=== PATIENT | female | born 1980 | race Hispanic/Latino ===

== ENCOUNTER 2022-10-25 11:30 | Emergency (ER) | payer SELFPAY ==
[2022-10-25] MEDS ORDERED: NA CHLORIDE 0.9% 1,000 ML ONE (12:21)
[2022-10-25 12:22] LABS: Absolute Lymphocytes (CBC) 1.8 K/uL (0.7-4.9); Hematocrit 39.7 % (36.0-45.0); MCV 82.2 fL (80-100); MPV 7.3 fL (7.6-11.3); Platelets 371 thou/uL (152-406); RBC Red Blood Cell Count 4.83 M/uL (3.86-4.86)
[2022-10-25 12:25] LABS: Specific Gravity 1.009 (1.005-1.030)
[2022-10-25 12:26] LABS: Specific Gravity 1.009 (1.005-1.030); Urine Bacteria None Seen /HPF (<20); Urine Bilirubin NEGATIVE (Negative); Urine Blood Negative (Negative); Urine Clarity Extremely Turbid (Clear); Urine Color Light-Yellow (Yellow); Urine Glucose NEGATIVE (Negative); Urine Mucus Slight /HPF (None Seen); Urine Protein NEGATIVE (Negative); Urine RBC <5 /HPF (None Seen); Urine Urobilinogen Normal (Normal)
[2022-10-25 12:28] LABS: Protime INR 0.94
[2022-10-25 12:32] LABS: Barbiturates NEGATIVE (NEGATIVE); Benzodiazepines NEGATIVE (NEGATIVE); Cocaine NEGATIVE (NEGATIVE); METHAMPHETAM NEGATIVE (NEGATIVE); Methadone NEGATIVE (NEGATIVE); Opiates NEGATIVE (NEGATIVE); Phencyclidine NEGATIVE (NEGATIVE); THC Cannibis NEGATIVE (NEGATIVE)
[2022-10-25] MEDS ORDERED: ACETAMINOPHEN 500 MG TAB ONE (12:41)
[2022-10-25] MEDS ORDERED: LORazepam 2 MG/ML VIAL ONE (12:41)
--- NOTE | 2022-10-25 12:50 | EDPHYS ---
Physician Documentation [facility] Name: Maite Tao Age: 42 yrs Sex: Female : 1980 Arrival Date: 10/25/2022 Time: 11:30 Bed 17 Private MD: ED Physician Edsion Reaves HPI: 10/25 12:45 This 42 yrs old Female presents to ER via EMS with complaints of Anxiety. nate 12:45 The patient presents to the emergency department with anxiety, over money, over work. nate Onset: The symptoms/episode began/occurred 1 day(s) ago. Past psychiatric history: Prior diagnosis: bipolar disorder, schizophrenia. Associated signs and symptoms: The patient has no apparent associated signs or symptoms. The patient has experienced similar episodes in the past, multiple times. Historical: - Allergies: 11:35 No Known Allergies; db - PMHx: 11:35 Schizophrenia; Bipolar disorder; db - Immunization history:: Adult Immunizations unknown, Client reports receiving the 1st dose of the Covid vaccine. - Social history:: Smoking status: Patient denies any tobacco usage or history of. ROS: 12:46 Constitutional: Negative for fever, chills, and weight loss, Eyes: Negative for injury, nate pain, redness, and discharge, ENT: Negative for injury, pain, and discharge, Neck: Negative for injury, pain, and swelling, Cardiovascular: Negative for chest pain, palpitations, and edema, Respiratory: Negative for shortness of breath, cough, wheezing, and pleuritic chest pain, Abdomen/GI: Negative for abdominal pain, nausea, vomiting, diarrhea, and constipation, Back: Negative for injury and pain, : Negative for injury, bleeding, discharge, and swelling, MS/Extremity: Negative for injury and deformity, Skin: Negative for injury, rash, and discoloration, Neuro: Negative for headache, weakness, numbness, tingling, and seizure, Allergy/Immunology: Negative for hives, rash, and allergies, Endocrine: Negative for neck swelling, polydipsia, polyuria, polyphagia, and marked weight changes, Hematologic/Lymphatic: Negative for swollen nodes, abnormal bleeding, and unusual bruising. 12:46 Psych: Positive for anxiety. Exam: 12:46 Constitutional: This is a well developed, well nourished patient who is awake, alert, nate and in no acute distress. Head/Face: Normocephalic, atraumatic. Eyes: Pupils equal round and reactive to light, extra-ocular motions intact. Lids and lashes normal. Conjunctiva and sclera are non-icteric and not injected. Cornea within normal limits. Periorbital areas with no swelling, redness, or edema. ENT: Nares patent. No nasal discharge, no septal abnormalities noted. Tympanic membranes are normal and external auditory canals are clear. Oropharynx with no redness, swelling, or masses, exudates, or evidence of obstruction, uvula midline. Mucous membranes moist. Neck: Trachea midline, no thyromegaly or masses palpated, and no cervical lymphadenopathy. Supple, full range of motion without nuchal rigidity, or vertebral point tenderness. No Meningismus. Chest/axilla: Normal chest wall appearance and motion. Nontender with no deformity. No lesions are appreciated. Cardiovascular: Regular rate and rhythm with a normal S1 and S2. No gallops, murmurs, or rubs. Normal PMI, no JVD. No pulse deficits. Respiratory: Lungs have equal breath sounds bilaterally, clear to auscultation and percussion. No rales, rhonchi or wheezes noted. No increased work of breathing, no retractions or nasal flaring. Abdomen/GI: Soft, non-tender, with normal bowel sounds. No distension or tympany. No guarding or rebound. No evidence of tenderness throughout. Back: No spinal tenderness. No costovertebral tenderness. Full range of motion. Skin: Warm, dry with normal turgor. Normal color with no rashes, no lesions, and no evidence of cellulitis. MS/ Extremity: Pulses equal, no cyanosis. Neurovascular intact. Full, normal range of motion. Neuro: Awake and alert, GCS 15, oriented to person, place, time, and situation. Cranial nerves II-XII grossly intact. Motor strength 5/5 in all extremities. Sensory grossly intact. Cerebellar exam normal. Normal gait. Psych: Awake, alert, with orientation to person, place and time. Behavior, mood, and affect are within normal limits. Vital Signs: 11:32 BP 124 / 88; Pulse 87; Resp 16; Temp 98.2(O); Pulse Ox 99% on R/A; Weight 65.77 kg; db Height 5 ft. 1 in. ; 11:32 Body Mass Index 27.40 (65.77 kg, 154.94 cm) db MDM: 11:33 Patient medically screened. [facility] 12:46 Differential diagnosis: drug withdrawal. acute psychotic break, depression, psychosis nate secondary to non-compliance. Data reviewed: vital signs, nurses notes, lab test result(s), CBC, drug level(s), electrolytes, hepatic panel, urinalysis. Consideration of Admission/Observation Escalation of care including admission/observation considered. I considered the following discharge prescriptions or medication management in the emergency department Medications were administered in the Emergency Department. See MAR. Test considered but Not performed: X-ray: no cxr. Historians other than the Patient: EMS: ems, well informed. non. Care significantly affected by the following chronic conditions: schizo, bipolar. 10/25 11:33 Order name: Acetaminophen [facility] 10/25 11:33 Order name: Basic Metabolic Panel [facility] 10/25 11:33 Order name: CBC with Diff; Complete Time: 12:44 [facility] 10/25 11:33 Order name: ETOH Level [facility] 10/25 11:33 Order name: Hepatic Function [facility] 10/25 11:33 Order name: PT-INR; Complete Time: 12:44 [facility] 10/25 11:33 Order name: Test, Urine; Complete Time: 12:44 [facility] 10/25 11:33 Order name: Ptt, Activated; Complete Time: 12:44 [facility] 10/25 11:33 Order name: Salicylate [facility] 10/25 11:33 Order name: Urinalysis w/ reflexes; Complete Time: 12:44 [facility] 10/25 11:33 Order name: Urine Drug Screen; Complete Time: 12:44 [facility] 10/25 11:33 Order name: EKG; Complete Time: 11:34 [facility] 10/25 11:33 Order name: EKG - Nurse/Tech; Complete Time: 12:12 [facility] 10/25 11:33 Order name: IV Saline Lock; Complete Time: 12:12 [facility] 10/25 11:33 Order name: Labs collected and sent; Complete Time: 12:12 [facility] 10/25 11:33 Order name: Suicide Screening ([place]); Complete Time: 12:36 [facility] Administered Medications: 12:35 Drug: NS 0.9% IV 1000 ml Route: IV; Rate: 1 bolus; Site: right antecubital; nj1 12:35 Drug: Acetaminophen PO 1000 mg Route: PO; nj1 13:03 Follow up: Response: No adverse reaction nj1 12:35 Drug: Ativan IVP 1 mg Route: IVP; Site: right antecubital; nj1 13:02 Follow up: Response: No adverse reaction nj1 13:02 Drug: hydrOXYzine PO 50 mg Route: PO; nj1 Disposition Summary: 10/25/22 12:50 Discharge Ordered Location: Home nate Problem: new nate Symptoms: have improved nate Condition: Stable nate Diagnosis - Bipolar disorder, unspecified nate - Anxiety disorder, unspecified nate Followup: nate - With: Private Physician - When: 2 - 3 days - Reason: Recheck today's complaints, Continuance of care, Re-evaluation by your physician Followup: nate - With: Gomez Francis MD - When: 2 - 3 days - Reason: Recheck today's complaints, Re-evaluation by your physician Discharge Instructions: - Discharge Summary Sheet nate - Managing Bipolar Disorder nate - Mixed Bipolar Disorder nate - Supporting Someone With Bipolar Disorder nate - Supporting Someone With Anxiety nate - Managing Anxiety, Adult nate Forms: - Medication Reconciliation Form [facility] - Thank You Letter [facility] - Antibiotic Education nate - Prescription Opioid Use nate - Patient Portal Instructions [facility] - Leadership Thank You Letter [facility] Prescriptions: - Hydroxyzine HCl 25 mg Oral Tablet - take 1 tablet by ORAL route every 6 hours As needed; 30 tablet; Refills: 0, nate Product Selection Permitted Signatures: Dispatcher [employer] Edison Stephens MD MD cha Benton, Danielle RN RN db Melanie Mccabe RN RN nj1
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
[2022-10-25] MEDS ORDERED: hydrOXYzine HCL 25 MG TAB ONE (13:07)
[2022-10-25 13:13] LABS: ALT/SGPT 204 U/L (13-56); AST/SGOT 165 U/L (15-37); Alkaline Phosphatase 683 U/L (45-117); BUN Blood Urea Nitrogen 9 mg/dL (7-18); Bicarbonate 30 mEq/L (21-32); Bilirubin Direct 0.3 mg/dL (0-0.2); Bilirubin Indirect, Calculated 0.1 mg/dL (0.2-0.8); Bilirubin Total 0.4 mg/dL (0.2-1.0); Glomerular Filtration Rate 95 ml/min (=/>90); Glucose Level 95 mg/dL (74-106); Protein, Total 8.7 g/dL (6.4-8.2); Sodium Level 137 mEq/L (136-145)
[2022-10-25 13:22] VITALS: BP 124/88; TEMP 98.2; O2SAT 99
--- NOTE | 2022-10-26 17:05 | EKG ---
Test Date: 2022-10-25 Test Time: 12:21:04 Heel Former: EDILBERTO MEASUREMENT RESULTS: Intervals: Rate: 79 IL: 126 QRSD: 82 QT: 364 QTc: 417 [place]: P: -12 IL: 126 QRS: 41 T: 26 INTERPRETIVE STATEMENTS: Normal sinus rhythm Normal ECG No previous ECG available for comparison Electronically Signed On 10-26-22 17:02:59 CDT by Vance Gee
== END 2022-10-25 13:09 | disposition home or self-care (01) ==
LOC: EDBD 11:30 → ER 11:30
DX: F31.9 Bipolar disorder, unspecified (principal); F41.9 Anxiety disorder, unspecified
CPT/HCPCS: 36415; 80048; 80076; 80143; 80179; 80307; 81001; 81025; 82077; 85025; 85610; 85730; 93005; 96374; 99284; J7030

== ENCOUNTER 2023-07-26 13:42 | Emergency (ER) | payer SELFPAY ==
--- OUTSIDE RECORDS SUMMARY | 2023-07-26 13:44 | XMS REPORT | Continuity of Care Document ---
Author Name Unknown Address [address] [facility] [place] [address] [facility] thconnect Address [address] [facility] [place] [address] Care Team Providers Care Dog Beautician Name Role Phone NONE, NONE Primary Care Physician Unavailab DR ALEX Barnard Attending Clinician Unavailable DR ALEX BALLARD Attending Clinician Unavailable Caleb Putnam Attending Clinician Unavailable Doctor Unassigned, [place] Attending Clinician U Ray Rosario MD Attending Clinician +0 Giorgio Can CRNA Attending Clinician + [phone] Gelacio Mackey CRNA Attending Clinician [phone] Modesta Goyal PA-C Attending Clinician [phone] Ella Cline MD Attending Clinician [phone] , [facility] Room Attending Clinician Unavailortiz Robb MD, Saba Lackey Attending Clinician [phone] Emmy PENDLETON, Sravanthi Lisa Attending Clinician [phone] Ariana Martinez MD Attending Clinician [phone] DR ALEX BALLARD Admitting Clinician Unavailable Ray Cummins MD Admitting Clinician + Payers Payer Name Policy Type Policy Number Effective Date Expirati on Date Source 1000 [id number] 2023 00:00:00 0700 [id number] 1958 00:00:00 Problems Condition Name Condition Details Condition Category Status Onset Date Resolution Date Last Treatment Date Treating Clinician Comments Source Encounter for female sterilizat ion procedure Encounter for female sterilizat ion procedure Disease Active 2-07 00:00: 00 Overview: 04/20/2019 - s/p laparosco pic bilateral salpingec riccardo. [facility] Consultati on for female sterilizat ion Consultati on for female sterilizat ion Disease Active 1-13 00:00: 00 Overview: Added automatic ally from request for surgery [id number] [facility] History of section History of section Disease Active - 00:00: 00 [facility] History of left salpingo-o ophorectom y History of left salpingo-o ophorectom y Disease Active 03-24 00:00: 00 [facility] section wound seroma, section wound seroma, Disease Active - 00:00: 00 [facility] Low-lying placenta Low-lying placenta Disease Active 11-02 00:00: 00 Overview: 11/02/18 - Anatomy scan and echo were normal. CL was 49 mm and the placental edge was 0.9 cm from the cervical os. [facility] Previous delivery affecting , antepartum Previous delivery affecting , antepartum Disease Active 07-14 00:00: 00 [facility] History of ectopic History of ectopic Disease Active 07-14 00:00: 00 [facility] Obesity Obesity Disease Active 09-03 00:00: 00 Overview: ICD10 Diagnosis Term [employer] [facility] Allergies, Adverse Reactions, Alerts Allergy Name Allergy Type Status Severity Reaction(s) Onset Date Inactive Date Treating Clinician Comments Source No Known Drug Allergie s DA Active U 8 00:00: 00 [facility] No Known Drug Allergie s DA Active [facility] Social History Social Habit Start Date Stop Date Quantity Comments Source ASSERTION 2018-06-21 00:00:00 [facility] History SDOH Alcohol Binge [facility] Alcohol Comment [facility] At [facility] Alcohol intake 2019-04-23 00:00:00 2019-04-23 00:00:00 [facility] History SDOH Alcohol Std Drinks 2019-04-17 00:00:00 2019-04-17 00:00:00 2 [facility] History SDOH Alcohol Frequency 2019-04-17 00:00:00 2019-04-17 00:00:00 3 [facility] Smoking Status Start Date Stop Date Source Never smoker [facility] Medications Ordered Medication Name Filled Medication Name Start Date Stop Date Current Medication? Ordering Clinician Indication Dosage Frequency Signature (SIG) Comments Components Source ondansetron (ZOFRAN (PF)) injection 4 mg 04-20 15:32: 05 Yes 4mg 4 mg, Slow IV Push, PRN, Starting Tue04/20/19 at 0932, Until Discontinu ed, Routine, Nausea and Vomiting (N/V) [facility] HYDROcodone -acetaminop hen (NORCO 5) 5-325 mg tablet 2 tablet 04-20 15:31: 42 Yes 2{tbl} 2 tablet, Oral, Q6HPRN, Starting Tue04/20/19 at 0931, Until Discontinu ed, Routine, Pain (scale 7-10) [facility] proMETHazin e (PHENERGAN) 12.5 mg in NaCl 0.9% (NS) 50 mL piggyback 04-20 15:23: 28 Yes 12.5mg 12.5 mg, Intravenou s, [id number], 2 doses, Starting Tue04/20/19 at 0923, Until Discontinu ed, 50 mL, PACU [facility] HYDROmorpho ne (DILAUDID) injection 0.25 mg 04-20 15:23: 28 Yes .25mg 0.25 mg, Slow IV Push, [id number], 8 doses, Starting Tue04/20/19 at 0923, Until Discontinu ed, Routine, Pain (scale 7-10), up to 2mg, PACU
Us e approved by (Faculty): ADC PROVIDER [facility] FENTanyl PF (SUBLIMAZE (PF)) injection 50 mcg 04-20 15:23: 28 Yes 50ug 50 mcg, Slow IV Push, Q5MIN PRN, 4 doses, Starting Tue04/20/19 at 0923, Until Discontinu ed, Routine, Pain (scale 4-6), PACU [facility] sugammadex (BRIDION) injection 04-20 15:03: 00 04-20 15:29 :59 No Intravenou s, ONCE INTRA PROCEDURE, Starting Tue04/20/19 at 0903, Until Discontinu ed, Routine, Intra-op [facility] sodium chloride 0.9 % irrigation solution 04-20 15:00: 00 Yes PRN, Starting Tue04/20/19 at 0900, Until Discontinu ed, Intra-op [facility] ketorolac (TORADOL) injection 04-20 14:58: 00 04-20 15:29 :59 No ONCE INTRA PROCEDURE, Starting Tue04/20/19 at 0858, Until Discontinu ed, Routine, Intra-op [facility] bupivacaine -epinephrin e-pf (SENSORCAIN E W/EPINEPHRI NE) 0.25 %-1:200,000 injection 04-20 14:32: 00 Yes PRN, Starting Tue04/20/19 at 0832, Until Discontinu ed, Routine, Intra-op [facility] ceFAZolin (ANCEF) injection 04-20 14:31: 00 04-20 15:29 :59 No ONCE INTRA PROCEDURE, Starting Tue04/20/19 at 0831, Until Discontinu ed, RUSSEL, Intra-op [facility] ondansetron (ZOFRAN (PF)) injection 04-20 14:14: 00 04-20 15:29 :59 No ONCE INTRA PROCEDURE, Starting Tue04/20/19 at 0814, Until Discontinu ed, Routine, Intra-op [facility] acetaminoph en ADULT (OFIRMEV) injection 04-20 14:14: 00 04-20 15:29 :59 No IV Infusion, Administer over 15 Minutes, ONCE INTRA PROCEDURE, Starting Tue04/20/19 at 0814, Until Discontinu ed, Routine, Intra-op [facility] dexamethaso ne (DECADRON PHOSPHATE) injection 04-20 14:14: 00 04-20 15:29 :59 No Intravenou s, ONCE INTRA PROCEDURE, Starting Tue04/20/19 at 0814, Until Discontinu ed, Routine, Intra-op [facility] ketamine (KETALAR) injection 04-20 14:05: 00 04-24 12:07 :55 No ONCE INTRA PROCEDURE, Starting Tue04/20/19 at 0805, Until Tu04/24/19 at 0607, Routine, Intra-op [facility] propofol IV infusion 04-20 14:05: 00 04-20 15:29 :59 No Intravenou s, ONCE INTRA PROCEDURE, Starting Tue04/20/19 at 0805, Until Discontinu ed, Routine, Intra-op [facility] lidocaine 1% (XYLOCAINE) 100 mg/10 mL (1 %) injection 04-20 14:01: 00 04-20 15:29 :59 No ONCE INTRA PROCEDURE, Starting Tue04/20/19 at 0801, Until Discontinu ed, Routine, Intra-op [facility] FENTanyl PF (SUBLIMAZE (PF)) injection 04-20 13:57: 00 04-20 15:29 :59 No ONCE INTRA PROCEDURE, Starting Tue04/20/19 at 0757, Until Discontinu ed, Routine, Intra-op [facility] midazolam (VERSED) injection 04-20 13:57: 00 04-20 15:29 :59 No ONCE INTRA PROCEDURE, Starting Tue04/20/19 at 0757, Until Discontinu ed, Routine, Intra-op [facility] lactated ringers IV infusion 1,000 mL 04-20 13:30: 00 04-20 13:25 :00 No 1000mL at 20 mL/hr, 1,000 mL, IV Infusion, ONCE, 1 dose, Tue04/20/19 at 0730, Routine, DSU Pre-op [facility] lactated ringers IV infusion 04-20 13:11: 00 04-20 15:29 :59 No IV Infusion, CONTINUOUS PRN, Starting Tue04/20/19 at 0711, Until Discontinu ed, Routine, Intra-op [facility] HYDROcodone -acetaminop hen 5-325 mg tablet 04-20 00:00: 00 Yes [id number] 1{tbl} Take 1 tablet by mouth every 6 (six) hours as needed (severe pain). [facility] ibuprofen 600 mg tablet 04-20 00:00: 00 Yes [id number] 600mg Take 1 tablet by mouth every 6 (six) hours as needed (pain). [facility] ibuprofen 600 mg tablet 03-24 00:00: 04-20 00:00 :00 No [id number] 600mg Take 1 tablet by mouth every 6 (six) hours as needed (pain). [facility] HYDROcodone -acetaminop hen 5-325 mg tablet 03-24 00:00: 00 04-20 00:00 :00 No [id number] 1{tbl} Take 1 tablet by mouth every 6 (six) hours as needed (severe pain). [facility] ibuprofen 600 mg tablet 2018-03 00:00: 04-20 00:00 :00 No [id number] 600mg Take 1 tablet by mouth every 6 (six) hours as needed (pain). [facility] metroNIDAZO LE 500 mg tablet 09-19 00:00: 00 10-19 00:00 :00 No 1{tbl} Take 1 tablet by mouth 2 (two) times daily. [facility] no.44-iron, car-FA-dha (PRENATE MINI) 29 mg iron-1 mg -350 mg Cap - 00:00: 00 Yes [id number] 1{tbl} Take 1 tablet by mouth daily. [facility] progesteron e (PROMETRIUM ) 200 mg capsule 07-14 00:00: 00 10-19 00:00 :00 No [id number] 200 mg intravagin ally every night [facility] Vital Signs Vital Name Observation Time Observation Value Comments S ource Height 2023-04-06 18:53:00 154.94 CM Weight 2023-04-06 18:53:00 63.6 KG Height 2023-04-06 18:53:00 154.94 CM Weight 2023-04-06 18:53:00 63.6 KG Systolic blood pressure 2019-04-20 16:09:00 140 mm[Hg] [facility] Diastolic blood pressure 2019-04-20 16:09:00 89 mm[Hg] [facility] Heart rate 2019-04-20 16:09:00 90 /min [facility] Respiratory rate 2019-04-20 16:09:00 16 /min [facility] Oxygen saturation in Arterial blood by Pulse oximetry 2019-04-20 16:09:00 99 /min [facility] Body temperature 2019-04-20 16:00:00 36.22 Janell [facility] Body height 2019-04-19 18:48:00 157.5 cm [facility] Body weight 2019-04-19 18:48:00 83.462 kg [facility] BMI 2019-04-19 18:48:00 33.65 kg/m2 [facility] Systolic blood pressure 2019-04-20 16:09:00 140 mm[Hg] [facility] Diastolic blood pressure 2019-04-20 16:09:00 89 mm[Hg] [facility] Heart rate 2019-04-20 16:09:00 90 /min [facility] Respiratory rate 2019-04-20 16:09:00 16 /min [facility] Oxygen saturation in Arterial blood by Pulse oximetry 2019-04-20 16:09:00 99 /min [facility] Body temperature 2019-04-20 16:00:00 36.22 Janell [facility] Body height 2019-04-19 18:48:00 157.5 cm [facility] Body weight 2019-04-19 18:48:00 83.462 kg [facility] BMI 2019-04-19 18:48:00 33.65 kg/m2 [facility] Systolic blood pressure 2018-11-16 16:05:00 124 mm[Hg] University [facility] Diastolic blood pressure 2018-11-16 16:05:00 80 mm[Hg] [facility] Heart rate 2018-11-16 16:05:00 91 /min [facility] Body temperature 2018-11-16 16:05:00 36.67 Janell [facility] Respiratory rate 2018-11-16 16:05:00 18 /min [facility] Body height 2018-11-16 16:05:00 157.5 cm [facility] Body weight 2018-11-16 16:05:00 87.091 kg [facility] BMI 2018-11-16 16:05:00 35.12 kg/m2 [facility] Systolic blood pressure 2018-11-16 16:05:00 124 mm[Hg] [facility] Diastolic blood pressure 2018-11-16 16:05:00 80 mm[Hg] [facility] Heart rate 2018-11-16 16:05:00 91 /min [facility] Body temperature 2018-11-16 16:05:00 36.67 Janell [facility] Respiratory rate 2018-11-16 16:05:00 18 /min [facility] Body height 2018-11-16 16:05:00 157.5 cm [facility] Body weight 2018-11-16 16:05:00 87.091 kg [facility] BMI 2018-11-16 16:05:00 35.12 kg/m2 [facility] Systolic blood pressure 2018-10-19 14:53:00 129 mm[Hg] [facility] Diastolic blood pressure 2018-10-19 14:53:00 78 mm[Hg] [facility] Heart rate 2018-10-19 14:53:00 81 /min [facility] Body temperature 2018-10-19 14:53:00 36.83 Janell [facility] Respiratory rate 2018-10-19 14:53:00 18 /min [facility] Body height 2018-10-19 14:53:00 157.5 cm [facility] Body weight 2018-10-19 14:53:00 86.183 kg [facility] BMI 2018-10-19 14:53:00 34.75 kg/m2 [facility] Procedures Procedure Date / Time Performed Performing Clinician Source STERILIZATION CONSENT FORM 2019-05-10 06:01:00 Doctor Unassigned, [place] [facility] INTUBATION 2019-04-20 14:38:32 Gelacio Mackey [facility] LAPAROSCOPIC SALPINGECTOMY 2019-04-20 13:48:00 Ray Cummins [facility] POCT TEST 2019-04-20 13:45:00 Gelacio Mackey [facility] DAY SURGERY - ADC 2019-04-20 06:01:00 Doctor Annel ssigned, [place] [facility] STERILIZATION CONSENT FORM 2018-11-16 05:01:00 Doctor Unassigned, [place] [facility] SECOND AND THIRD TRIMESTER ULTRASOUND 2018-11-02 19:18:00 Ray Cummins [facility] SECOND AND THIRD TRIMESTER ULTRASOUND 2018-11-02 19:16:00 Ray Cummins [facility] POCT URINALYSIS W/O SPECIFIC GRAVITY 2018-10-19 14:52:00 Ray Cummins [facility] Encounters Start Date/Time End Date/Time Encounter Type Admission Type Attending Clinicians Care Facility Care Department Encounter ID Source 2022-04-01 10:02:05 Inpatient TEXANA TEXANA [id number] [facility] 2021-12-08 10:02:15 Inpatient TEXANA TEXANA [id number] [facility] 2021-12-04 12:03:37 Inpatient TEXANA TEXANA [id number] [facility] 2021-11-19 16:40:12 Inpatient TEXANA TEXANA [id number] [facility] 2021-11-18 09:29:28 Inpatient TEXANA TEXANA [id number] [facility] 2023-04-06 18:53:00 2023-04-06 22:38:00 Outpatient E ALEX BALLARD [facility] [id number] [facility] 2023-04-06 18:53:00 2023-04-06 22:38:00 Outpatient E ALEX BALLARD [facility] [id number] [facility] 2021-10-29 14:21:00 2021-10-29 14:21:00 Emergency [facility] [id number] 42 [facility] 2021-10-29 14:21:00 2021-10-29 14:21:00 Emergency Emergency Caleb Putnam [facility] [id number] 42 [facility] 2019-05-10 00:00:00 2019-05-10 00:00:00 Orders Only Doctor Unassigned, [place] [id number] 350.1.13.10 4.2.7.2.686 [id number] [id number] [facility] 2019-05-10 00:00:00 2019-05-10 00:00:00 Orders Only Doctor Unassigned, [place] [id number] 350.1.13.10 4.2.7.2.686 [id number] [id number] 2019-04-21 00:00:00 2019-04-21 00:00:00 Patient Secure Msg Doctor Unassigned, [place] [id number] 350.1.13.10 4.2.7.2.686 [id number] [facility] 2019-04-21 00:00:00 2019-04-21 00:00:00 Patient Secure Msg Doctor Unassigned, [place] [id number] 350.1.13.10 4.2.7.2.686 [id number] 134 [id number] 2019-04-20 07:18:00 2019-04-20 10:56:00 Hospital Encounter Ray Cummins [facility] 1.2.840.114 350.1.13.10 4.2.7.2.686 [id number] [facility] 2019-04-20 07:18:00 2019-04-20 10:56:00 Hospital Encounter Ray Cummins [facility] 1.2.840.114 350.1.13.10 4.2.7.2.686 [id number] 2019-04-20 07:58:00 2019-04-20 09:28:00 [facility] 1.2.840.114 350.1.13.10 4.2.7.2.686 [id number] [facility] 2019-04-20 07:58:00 2019-04-20 09:28:00 [facility] 1.2840.114 350.1.13.10 4.2.7.2.686 [id number] 2019-04-20 00:00:00 2019-04-20 00:00:00 Telephone Maria G [facility] [id number] 350.1.13.10 4.2.7.2.686 [id number] [facility] 2019-04-20 00:00:00 2019-04-20 00:00:00 Orders Only Doctor Unassigned, [place] [facility] 1.2840.114 350.1.13.10 4.2.7.2.686 [id number] [id number] [facility] 2019-04-20 00:00:00 2019-04-20 00:00:00 Orders Only Doctor Unassigned, [place] [facility] 1.2840.114 350.1.13.10 4.2.7.2.686 [id number] [id number] 2019-04-20 00:00:00 2019-04-20 00:00:00 Telephone Ray Cummins [facility] 1.2.840.114 350.1.13.10 4.2.7.2.686 [id number] 2019-04-04 00:00:00 2019-04-04 00:00:00 Refill Doctor Unassigned, [place] [facility] 1.2.840.114 350.1.13.10 4.2.7.2.686 [id number] [facility] 2019-04-04 00:00:00 2019-04-04 00:00:00 Refill Doctor Unassigned, [place] [facility] 1.2.840.114 350.1.13.10 4.2.7.2.686 [id number] [facility] 2019-04-04 00:00:00 2019-04-04 00:00:00 Refill Doctor Unassigned, [place] [facility] 1.2.840.114 350.1.13.10 4.2.7.2.686 [id number] 134 [id number] 2019-04-04 00:00:00 2019-04-04 00:00:00 Refill Doctor Unassigned, [place] [facility] 1.2.840.114 350.1.13.10 4.2.7.2.686 [id number] 134 [id number] 2018-11-16 10:36:52 2018-11-16 11:27:37 Routine Visit Modesta Goyal Lucy [facility] 1.2.840.114 350.1.13.10 4.2.7.2.686 [id number] [facility] 2018-11-16 10:36:52 2018-11-16 11:27:37 Routine Visit Modesta Goyal [facility] 1.2.840.114 350.1.13.10 4.2.7.2.686 [id number] 2018-11-16 00:00:00 2018-11-16 00:00:00 Orders Only Doctor Unassigned, [place] [facility] 1.2.840.114 350.1.13.10 4.2.7.2.686 [id number] [facility] 2018-11-16 00:00:00 2018-11-16 00:00:00 Orders Only Doctor Unassigned, [place] [facility] 1.2.840.114 350.1.13.10 4.2.7.2.686 [id number] 2018-10-19 09:43:53 2018-11-02 15:10:51 Routine Visit YoanaRay loza [facility] 1.2.840.114 350.1.13.10 4.2.7.2.686 [id number] [facility] 2018-11-02 12:56:27 2018-11-02 14:44:30 Social Media Marketing Manager Visit 1, [facility] Room Saba Robb, Sravanthi Martinez, [facility] 1.2.840.114 350.1.13.10 4.2.7.2.686 [id number] [facility] 2018-11-02 10:34:39 2018-11-02 12:55:46 Office Visit Saba Robb [facility] 1.2.840.114 350.1.13.10 4.2.7.2.686 [id number] [facility] 2018-11-02 10:34:39 2018-11-02 12:55:46 Office Visit Saba Robb [facility] 1.840.114 350.1.13.10 4.2.7.2.686 [id number] 2018-10-16 00:00:00 2018-10-16 00:00:00 Case Management Ray Cummins [facility]ye [facility] 1..840.114 350.1.13.10 4.2.7.2.686 [id number] [facility] Results Test Description Test Time Test Comments Results Resul t Comments Source U/S PELVIS *OW* 2023-04-06 21:06:04 [facility] : 1980 Sex: F ULTRA SOUND OF THE PELVISDictation Location: [id number] HISTORY: pelvic pain left-sided, prior C-sectionCOMPARISON: None.TECHNIQUE: Ultrasound of the pelvis was obtained using transabdominal technique. Real-time grayscale images were obtained. Duplex color and spectral Doppler imaging was performed. FINDINGS:The uterus measures 6 23 x 3.42 x 4.84 cm, normal in size, shape, and echogenicity. No evidence of enlargement or fibroids. No evidence of congenital anomalies. The endometrial stripe measures 0.17 cm in thickness normal in appearance. Right ovary is surgically absent. Left ovary measures 5.09 x 4.87 x 5.58 cm. There is a 4.45 x 4.05 x 4.54 cm hemorrhagic cyst in the left ovary. Normal arterial inflow and venous outflow of the left ovary was demonstrated using duplex color and spectral Doppler.No evidence of free fluid in the cul-de-sac. No separate pelvic mass is demonstrated. IMPRESSION:There is a 4.5 cm hemorrhagic cyst in the left ovary. No evidence of ovarian torsion.Electronically signed by: Shellie Marrufo MD 04/06/2023 09:06 PM [facility] URINALYSIS W/O MICROSCOPICOW2023-04-06 19:48:00* Test Item Value Reference Range Interpretation Comme nts COLOR (test code = COLU) Yellow YELLOW CLARITY (test code = CLA) Clear CLEAR GLUCOSE UR (test code = UA GLUCOSE) Negative NEGATIVE BILI UR (test code = BILE) Negative NEGATIVE KETONES UR (test code = SOREN) Negative NEGATIVE SP GRAVITY (test code = SPGR) 1.025 1.005-1.030 PH UR (test code = PH) 6.0 4.5-8.0 PROTEIN UR (test code = PU) Negative NEGATIVE NITRITE UR (test code = NITRITE) Negative NEGATIVE UROBIL UR (test code = GUROQ) 0.2 E.U./dL UROBIL UR (test code = GUROQC) UROBILINOGEN REFERENCE RANGE 0.2 - 1.0 EU/dL BLOOD UR (test code = UA BLOOD) Negative NEGATIVE LEUK ES UR (test code = LEUK) 1+ NEGATIVE A UA, Urinalysis Rflx Cult/[id number] 17:00:00* Test Item Value Reference Range Interpretation Comme nts Color,Urine (test code = UCOL) Yellow Yellow Clarity,Urine (test code = UCLAR) Clear Clear Ph, Urine (test code = UPH) 5.5 5.0-9.0 N Specific [place],Urine (test code = USG) <= 1.005 1.005-1.030 N Blood,Urine (test code = UBLD) Large mg/dL Negative A Protein,Urine (test code = UPRO) Trace mg/dL Negative A Glucose,Urine (UA) (test cod e = UGLU) Negative mg/dL Negative Ketones,Urine (test code = UKET) 15 mg/dL Negative A Nitrate,Urine (test code = UNIT) Negative Negative Bilirubin,Urine (test code = UBIL) Negative mg/dL Negative Urobilinogen,Urine (test cod e = UURO) 0.2 E.U./dL Normal Leukocyte Esterase,Urine (te st code = ULEU) Negative mg/dL Negative UF REFLEXUF REFLEXUF REFLEXHCG, Urine Qual (LAB)2021-10-29 17:00:00* Test Item Value Reference Range Interpretation Comme nts HCG, Urine, Qual (test code = HCGU) Negative Negative Drug Screen,[id number] 17:00:00* Test Item Value Reference Range Interpretation Comme nts PCP Phencyclidine Screen,Urine (test code = PCPU) Negative Negative Amphetamine Screen,Urine (test code = AMPU) Positive Negative A Confirmation by GC/MS not routinely performed. Ifconfirmation is required, an order must be placed. Methadone Screen,Urine (test code = METHU) Negative Negative Opiate Screen,Urine (test code = UOPIS) Negative Negative Barbituates Screen,Urine (test code = BARBU) Negative Negative Benzodiazepines Screen,Urine (test code = UBENZS) Negative Negative Cocaine Screen,Urine (test code = UCOCS) Negative Negative Cannabinoid Screen,Urine (test code = UTHCS) Negative Negative Propoxyphene Screen, Urine (test code = UPROP) Negative Negative Urine [id number] 17:00:00* Test Item Value Reference Range Interpretation Comme nts RBC,Urine (test code = URBCUF) 3-5 /HPF 0-2 A WBC,Urine (test code = UWBCUF) 0-5 /HPF 0-5 Epithelial Cell,Urine (test code = UECUF) 0-5 /HPF 0-5 Casts,Urine (test code = UCASTUF) 6-10 /LPF None Seen A Bacteria,Urine (test code = UBACTUF) None Seen /hpf None Seen RBC,Urine (test code = URBC.BANK VAULT ATTENDANT) 3-5 /HPF 0-2 A WBC,Urine (test code = UWBC.BANK VAULT ATTENDANT) None Seen /HPF 0-5 Bacteria,Urine (test code = UBACT.BANK VAULT ATTENDANT) Few /HPF None Seen A Squamous Epithelial Cell,Urine (test code = USQEPI.BANK VAULT ATTENDANT) 0-5 /HPF 0-5 Hyaline Casts,Urine (test code = UHYALC.XX) 0-5 /HPF None Seen A Reviewed (test code = UDMREV) Manual Micr Reviewed UF REFLEXUF REFLEXUF REFLEXCoronavirus PCR, COVID19 [id number] 16:30:00* Test Item Value Reference Range Interpretation Comme nts Coronavirus PCR, COVID19 Rapid (test code = SARSCOV2) For use under Emergency Use Authorization (EUA) only. Coronavirus PCR, COVID19 Rapid (test code = JDJRLOC56.1) Reference Range: Negative SARS-CoV-2 PCR Result: (test code = SARS-CoV-2 PCR Result:) Negative by RT-PCR COVID-19 Status: SymptomaticComplete Blood Count Auto [id number] 16:30:00* Test Item Value Reference Range Interpretation Comme nts White Blood Count (test code = WBCT) 14.4 x10 3/uL 4.4-10.5 H Red Blood Count (test code = RBC) 5.41 x10 6/uL 3.75-5.20 H Hemoglobin (test code = HGBT) 14.3 g/dL 12.2-14.8 N Hematocrit (test code = HCTT) 43.7 % 36.5-44.4 N Mean Corpuscular Volume (trevon t code = MCV) 80.80 fL 80.00-100.00 N Mean Corpuscular Hemoglobin (test code = MCH) 26.4 pg 27.0-32.5 L Mean Corpuscular HGB Conc (test code = MCHC) 32.70 g/dL 32.00-37.50 N RDW Coefficient of Variation (test code = RDWCV) 15.0 % 11.5-14.5 H Platelet Count (test code = PLTT) 396.0 x10 3/uL 140.0-440.0 N Mean Platelet Volume (test code = MPV) 9.9 fL Immature Granulocytes % (Aut o) (test code = IMMGRAN%) 0.3 % 0.0-5.0 N Neutrophils % (Auto) (test code = NE%) 83.2 % 36.0-70.0 H Lymphocytes % (Auto) (test code = LY%) 8.7 % 12.0-44.0 L Monocytes % (Auto) (test cod e = MO%) 7.4 % 0.0-11.0 N Eosinophils % (Auto) (test code = EO%) 0.1 % 0.0-7.0 N Basophils % (Auto) (test cod e = BA%) 0.3 % 0.0-2.0 N Immature Granulocytes # (Aut o) (test code = IMMGRAN#) 0.05 x10 3/uL Neutrophils # (Auto) (test code = NE#) 12.0 x10 3/uL 1.6-7.4 H Lymphocytes # (Auto) (test code = LY#) 1.25 x10 3/uL 0.50-4.60 N Monocytes # (Auto) (test cod e = MO#) 1.06 x10 3/uL 0.00-1.20 N Eosinophils # (Auto) (test code = EO#) 0.01 x10 3/uL 0.00-0.74 N Basophils # (Auto) (test cod e = BA#) 0.05 x10 3/uL 0.00-0.21 N nRBC Abs (test code = NRBCA) 0 nRBC Pct (test code = NRBCP) 0 % Comprehensive Metabolic [id number] 16:30:00* Test Item Value Reference Range Interpretation Comme nts SODIUM (test code = NA) 139.0 mmol/L 136.0-145.0 N Potassium,K (test code = K) 4.2 mmol/L 3.0-5.1 N Chloride (test code = CL) 101 mmol/L 98-107 N Carbon Dioxide (test code = CO2) 26 mmol/L 20-31 N Anion Gap (test code = GAP) 12 mmol/L 5-15 N Blood Urea Nitrogen (test co de = BUN) 14 mg/dL 9-23 N Creatinine (test code = CREATT) 1.20 mg/dL 0.55-1.02 H Creatinine Clr Calc Pharmacy (test code = CRCLPHA) 56.08 mL/min Estimated GFR ( Amer[place] (test code = EGFRAA) > 60 mL/min/1.73m2 Estimated GFR (Non Afr Amer[place] ca (test code = EGFRNAA) 56 mL/min/1.73m2 BUN/Creatinine Ratio (test c ode = BCRATIO) 12 ratio 10-20 N Glucose (test code = GLU) 82 mg/dL 74-106 N Osmolality,Calculated (test code = OSMOC) 287.0 Calcium (test code = CA) 10.2 mg/dL 8.3-10.6 N Bilirubin,Total (test code = BILIT) 0.9 mg/dL 0.2-1.1 N Aspartate Amino Transferase (test code = AST) 42 U/L 0-34 H Alanine Aminotransferase (te st code = ALT) 50 U/L 10-49 H Total Protein (test code = TP) 8.5 g/dL 5.7-8.2 H Albumin Level (test code = ALB) 5.6 g/dL 3.2-4.8 H Globulin (test code = GLOB) 2.9 mg/dL 2.3-3.5 N Albumin/Globulin Ratio (test code = AGRATIO) 1.9 ratio 0.8-2.0 N Alkaline Phosphatase (test c ode = ALP) 204 U/L 46-116 H Ethanol [id number] 16:30:00* Test Item Value Reference Range Interpretation Comme nts Ethanol (test code = ETOH) < 3 mg/dL The pharmacologi david response to blood alcohol levels mayvary from individual to individual. The fatal concentrationhas been reported to be >400mg/dL. [id number] 14:38:32LyGelacio waters CRNA ? ? 04/20/2019 ?8:40 AMIntubationDate/Time: 04/20/2019 8:09 AMUrgency: elective Airway not difficult General Information and Staff Patient location during procedure: ORResident/COMPUTER SYSTEMS SECURITY ANALYST:Gelacio Mackey CRNAPerformed: resident/COMPUTER SYSTEMS SECURITY ANALYST Indications and Patient ConditionIndications for airway management: anesthesiaSpontaneous Ventilation: absentSedation level: deepPreoxygenated: yesPatientposition: sniffingMILS maintained throughoutMask difficulty assessment: 1 - vent by mask Final Airway DetailsFinal airway type: endotracheal airway Successful airway: ETTCuffed: yes Successful intubation technique: direct laryngoscopyEndotracheal tube insertion site: oralBlade: MacintoshBlade size:#3ETT size (mm): 7.0Placement verified by: chest auscultation Cuff volume (mL): 8Measured from: lipsETT to lips (cm): 19[facility] 2019[facility] 13:50:00* Test Item Value Reference Range Interpretation Comme nts POCT PREG (test code = 1605) Negative On board controls acceptable with C Line (test code = 3574) Yes POCT PREG LOT # (test code = 3575) [id number] POCT PREG TEST DATE ( test code = 3576) 03/13/2020 Lab Interpretation (test cod e = 86621-5) Normal [facility] URINALYSIS W/O SPECIFIC [id number] 14:57:00* Test Item Value Reference Range Interpretation Comme nts POCT PH U (test code = 3254) NA 5-8 POCT U LEUK EST (test code = 3263) NA Negative - Negative POCT U NIT (test code = 3262) NA Negative - Negati ve POCT U PROT (test code = 3259) Negative Negative - Negat yunier POCT U GLU (test code = 3256) Negative Negative - Negati ve POCT U KETONE (test code = 3258) NA Negative - Neg ative POCT U BLD (test code = 3257) NA Negative - Negati ve [facility] URINALYSIS W/O SPECIFIC [id number] 14:57:00* Test Item Value Reference Range Interpretation Comme nts POCT PH U (test code = 3254) NA 5-8 POCT U LEUK EST (test code = 3263) NA Negative - Negative POCT U NIT (test code = 3262) NA Negative - Negati ve POCT U PROT (test code = 3259) Negative Negative - Negat yunier POCT U GLU (test code = 3256) Negative Negative - Negati ve POCT U KETONE (test code = 3258) NA Negative - Neg ative POCT U BLD (test code = 3257) NA Negative - Negati ve [facility] URINALYSIS W/O SPECIFIC [id number] 14:57:00* Test Item Value Reference Range Interpretation Comme nts POCT PH U (test code = 3254) NA 5-8 POCT U LEUK EST (test code = 3263) NA Negative - Negative POCT U NIT (test code = 3262) NA Negative - Negati ve POCT U PROT (test code = 3259) Negative Negative - Negat yunier POCT U GLU (test code = 3256) Negative Negative - Negati ve POCT U KETONE (test code = 3258) NA Negative - Neg ative POCT U BLD (test code = 3257) NA Negative - Negati ve [facility]
[2023-07-26] MEDS ORDERED: NA CHLORIDE 0.9% 1,000 ML ONE (14:15)
[2023-07-26 14:32] LABS: Absolute Basophils 0.1 K/uL (0-0.5); Absolute Lymphocytes (CBC) 0.8 K/uL (0.7-4.9); Absolute Monocytes 0.6 K/uL (0.1-1.3); Absolute Neutrophil 9.5 K/uL (1.8-8.0); Basophils % 0.5 % (0-1.3); Eosinophils % 0.3 % (0-4.4); Hemoglobin 12.8 g/dL (12.0-15.0); Lymphocytes % 7.3 % (15.3-44.8); MCH 27.7 pg (27.0-35.0); MCHC 32.9 g/dL (32.0-36.0); MCV 84.3 fL (80-100); MPV 8.3 fL (7.6-11.3); Monocytes % 5.8 % (3.3-12.3); Neutrophils % 86.1 % (41.7-73.7); Nucleated Red Blood Cells % 0.1 % (0-0); Platelets 314 thou/uL (152-406); RBC Red Blood Cell Count 4.63 M/uL (3.86-4.86); Red Cell Distribution Width 13.4 % (12.1-15.2)
[2023-07-26 14:40] LABS: PT Prothrombin Time 12.9 SECONDS (9.5-12.5); PTT, Activated Partial Thromb 28.8 SECONDS (24.3-36.9); Protime INR 1.18
[2023-07-26 14:50] LABS: ALT/SGPT 42 U/L (13-56); AST/SGOT 42 U/L (15-37); Albumin 4.1 g/dL (3.4-5.0); Albumin/Globulin Ratio 1.2 (1.1-1.8); Alkaline Phosphatase 106 U/L (45-117); Anion Gap 14.6 mEq/L (5.0-15.0); BUN Blood Urea Nitrogen 24 mg/dL (7-18); Bicarbonate 22 mEq/L (21-32); Bilirubin Direct 0.4 mg/dL (0-0.2); Bilirubin Total 1.2 mg/dL (0.2-1.0); Globulin 3.4 g/dL (2.3-3.5); Glomerular Filtration Rate 73 ml/min (=/>90); Glucose Level 74 mg/dL (74-106); Protein, Total 7.5 g/dL (6.4-8.2); Sodium Level 134 mEq/L (136-145)
[2023-07-26 15:12] LABS: Potassium 2.6 mEq/L (3.5-5.1)
[2023-07-26] MEDS ORDERED: POTASSIUM 25 MEQ EFFERV TAB ONE (15:25)
--- NOTE | 2023-07-26 16:02 | RAD REPORT ---
EXAM DESCRIPTION: CT - Head C Spine Cap Wo Con - 07/26/2023 3:41 pm CLINICAL HISTORY: Trauma, head and neck injury. Chest, abdomen and pelvis pain. AMS COMPARISON: <Comparisons> TECHNIQUE: CT head without contrast. CT cervical spine without contrast with coronal and sagittal reformatted images. CT chest, abdomen and pelvis without contrast with coronal and sagittal reformatted images of the spi ne. All CT scans are performed using dose optimization technique as appropriate and may include automated exposure control or mA/KV adjustment according to patient size. FINDINGS: CT HEAD WITHOUT CONTRAST: No intracranial hemorrhage, hydrocephalus or extra-axial fluid collection. No areas of brain edema o r midline shift. The paranasal sinuses and mastoids are clear. The calvarium is intact. CT CERVICAL SPINE WITHOUT CONTRAST: No fracture or subluxation. The prevertebral soft tissues are normal in thickness. CT CHEST, ABDOMEN, PELVIS WITHOUT CONTRAST: NOTE: Lack of contrast is a significant limitation in the assessment of trauma related findings. Spec ifically, solid organ, vascular and bowel evaluation is significantly limited. The lungs are clear.No pneumothorax or pericardial/pleural fluid. No evidence of intra-abdominal visceral injury, free fluid or free air is seen within the above detai led limitations. No concerning pelvic findings. No fractures. IMPRESSION: Negative for acute traumatic findings within the above detailed limitations.
--- NOTE | 2023-07-26 16:23 | ER ---
Nurse's Notes [facility] Name: Maite Tao Age: 42 yrs Sex: Female : 1980 Arrival Date: 07/26/2023 Time: 13:42 Bed 3 Private MD: Diagnosis: Altered mental status, unspecified;Abuse of other non-psychoactive substances;Bipolar disorder, unspecified;Schizophrenia, unspecified;Hypoglycemia, unspecified;Adverse effect of amphetamines;Hypokalemia Presentation: 07/25 13:43 Chief complaint: EMS states: toned out because the inletter found patient facedown in a me1 ditch. A\\T\\Ox4, in and out of consciousness. Drowsy but arousable by voice. Superficial scratches to hands, feet and back. Coronavirus screen: Vaccine status: Patient reports receiving the 2nd dose of the covid vaccine. Ebola Screen: No symptoms or risks identified at this time. Initial Sepsis Screen: Does the patient meet any 2 criteria? No. Patient's initial sepsis screen is negative. Does the patient have a suspected source of infection? No. Patient's initial sepsis screen is negative. Risk Assessment: Do you want to hurt yourself or someone else? Patient reports no desire to harm self or others. Onset of symptoms is unknown. 13:43 Method Of Arrival: EMS: [facility] [place] Acuity: MARGARITO 3 me1 Triage Assessment: 13:48 General: Appears uncomfortable, unkempt, well developed, well nourished, Behavior is me1 cooperative, appropriate for age, agitated, anxious, Reports doesn't know what happened. Just woke up in the ditch when the inletter found her. Pain: Complains of pain in right lateral anterior chest Pain does not radiate. Pain currently is 10 out of 10 on a pain scale. Quality of pain is described as stabbing, Is continuous. EENT: No signs and/or symptoms were reported regarding the EENT system. Neuro: Level of Consciousness is awake, alert, obeys commands, Oriented to person, place, time, situation. Cardiovascular: Patient's skin is warm and dry. Respiratory: Airway is patent Respiratory effort is even, unlabored, Respiratory pattern is regular, symmetrical. GI: No signs and/or symptoms were reported involving the gastrointestinal system. : No signs and/or symptoms were reported regarding the genitourinary system. Derm: Skin is healthy with good turgor, Skin is pink, warm \\T\\ dry. superficial scratches all over body. Musculoskeletal: No signs and/or symptoms reported regarding the musculoskeletal system. CONDUCTOR/ENGINEER: 13:48 unknown, doesnt know. me1 Historical: - Allergies: 13:48 No Known Allergies; me1 - PMHx: 13:48 Bipolar disorder; Schizophrenia; me1 - PSHx: 13:48 section; me1 - Immunization history:: Adult Immunizations not immunized. - Infectious Disease History:: Denies. - Social history:: Smoking status: Reported history of juuling and/or vaping. Screenin:34 [facility] ED Fall Risk Assessment (Adult) History of falling in the last 3 months, me1 including since admission No falls in past 3 months (0 pts) Confusion or Disorientation Yes (5 pts) Intoxicated or Sedated No (0 pts) Impaired Gait No (0 pts) Mobility Assist Device Used No (0 pt) Altered Elimination No (0 pt) Score/Fall Risk Level 0 - 2 = Low Risk Maintained a safe environment, Provided non-skid footwear, Hourly rounding (assess needs \\T\\ fall precautionary measures) done. Abuse screen: Denies threats or abuse. Nutritional screening: No deficits noted. Tuberculosis screening: No symptoms or risk factors identified. Assessment: 13:52 General: See triage assessment. . me1 14:25 General: Patient denies SI and HI. . me1 14:54 General: Patient refusing to use BSC or try to go to the bathroom at this time. Refuses me1 straight cath as well. Informed Dr Reaves. Rec'd order for serum test. Called lab to have it added on to sample that was sent earlier. . 16:45 General: Started discussing discharge instructions with patient and she verbalized that me1 we didn't ask her about her mental health issues. Stated that she wanted to get help with her mental health issues. Informed Dr Reaves and he went to speak to patient. Patient refused to give urine sample but did admit to using methamphetamines a week ago. Patient verbalized that she was upset because we didn't even put a bandaid on her wounds. Explained to patient that she refused to let me wash her hands and feet earlier because it hurts and that all of her scratches are superficial and not bleeding and that they are dirty and require washing with soap and water and keeping them clean and dry until they are all healed in a few days. Discussed disharge instructions with patient but she refused to sign discharge instructions. Rebecca RN at bedside to assist with discharge at this time as patient continues to refuse to leave. . 17:07 Reassessment: Pt refusing discharge. Pt demanding to be transferred for mental health jl7 issues. Pt repeatedly denies SI and denies HI. Pt informed that the ER MD has medically cleared and discharged her, pt refusing to sign documentation and refusing to leave the ER. Informed pt that we will have to call PD to assist in discharge. Pt stated "Call PD then." [place] [employer] notified of situation and reported they have an officer in route. Pt then quietly ambulated out of ER with steady gate. [place] [employer] reported to call back if any additional problems arise. Vital Signs: 13:43 BP 112 / 85; Pulse 75; Resp 20; Temp 98.2; Pulse Ox 100% on R/A; Weight 54.43 kg; me1 Height 5 ft. 1 in. ; Pain 10/10; 14:00 BP 119 / 78; Pulse 84; Resp 18; Pulse Ox 100% on R/A; me1 15:00 BP 112 / 73; Pulse 88; Resp 18; Pulse Ox 100% on R/A; me1 16:00 BP 115 / 74; Pulse 86; Resp 18; Pulse Ox 100% on R/A; me1 13:43 Body Mass Index 22.67 (54.43 kg, 154.94 cm) wi1 13:43 Pain Scale: Adult wi1 ED Course: 13:43 Patient arrived in ED. me1 13:43 Edison Reaves MD is Attending Physician. [facility] 13:48 Triage completed. me1 13:48 Arm band placed on Patient placed in an exam room. me1 13:57 EKG done, by ED staff. 8 14:13 Initial lab(s) drawn, by wi, sent to lab. Inserted saline lock: 22 gauge in left wi1 antecubital area, using aseptic technique. 14:34 Radiology exam delayed due to test not completed at this time. nj 14:34 Patient has correct armband on for positive identification. Bed in low position. Call me1 light in reach. Side rails up X 1. Side rails up X2. Provided Education on: POC. Verbalized understanding. . Client placed on continuous cardiac and pulse oximetry monitoring. NIBP monitoring applied. library monitor on. Pulse ox on. NIBP on. 14:34 No provider procedures requiring assistance completed. me1 14:42 Maite Hughes, MARIBELL is Primary Nurse. me1 15:11 Notified ED physician of a critical lab result(s). Potassium 2.6. ll1 15:23 Test, Serum Sent. me1 15:43 Head C Spine Cap Wo Con In Process Unspecified. EDMS 16:22 Gomez Francis MD is Referral Physician. nate 16:53 IV discontinued, intact, bleeding controlled, No redness/swelling at site. Pressure me1 dressing applied. Administered Medications: 14:18 Drug: NS 0.9% IV 1000 ml IV at 1 bolus Per protocol; 1000 mL bolus Route: IV; Rate: 1 me1 bolus; Site: left antecubital; 16:42 Follow up: Response: No adverse reaction; IV Status: Completed infusion; IV Intake: me1 1000ml 15:28 Drug: Potassium PO Effervescent Tablet 50 mEq PO once; dissolve in 4 ounces of water or me1 juice Route: PO; 16:42 Follow up: Response: No adverse reaction me1 16:39 Drug: Potassium PO Effervescent Tablet 50 mEq PO once; dissolve in 4 ounces of water or me1 juice repeat in 30 after 1 Route: PO; 16:42 Follow up: Response: No adverse reaction me1 Medication: 16:52 VIS not applicable for this client. me1 Intake: 16:42 IV: 1000ml; Total: 1000ml. me1 Outcome: 16:23 Discharge ordered by . nate 17:16 Discharged to home ambulatory, me1 17:16 Condition: stable 17:16 Condition: stable 17:16 Discharge instructions given to patient, Instructed on discharge instructions, follow up and referral plans. medication usage, Demonstrated understanding of instructions, follow-up care, medications, Prescriptions given X 1, 17:19 Patient left the ED. me1 Signatures: Dispatcher [employer] EDNM Edison Reaves MD MD cha Jordan, Nathan nj Leal, Jahala, RN RN Saroj Benjamin, RN RN ll1 Mag Yo sm8 Maite Hughes, RN RN me1
--- NOTE | 2023-07-26 16:23 | EDPHYS ---
Physician Documentation [facility] Name: Maite Tao Age: 42 yrs Sex: Female : 1980 Arrival Date: 07/26/2023 Time: 13:42 Bed 3 Private MD: ED Physician Edison Reaves HPI: 07/25 13:59 This 42 yrs old Female presents to ER via EMS with complaints of Altered nate Mental Status. 13:59 The patient presents with confusion, decreased mental status, trouble concentrating. nate Onset: The symptoms/episode began/occurred just prior to arrival. Possible causes: CVA or TIA, drug use, alcohol, head injury, low blood sugar, seizure, sepsis, unknown. Associated signs and symptoms: Pertinent positives: abdominal pain. Current symptoms: In the emergency department the patient's symptoms have improved, moderately. Patient's baseline: Neuro: alert and fully oriented. It is unknown whether or not the patient has had similar symptoms in the past. [employer]: 13:48 unknown, doesnt know. me1 Historical: - Allergies: 13:48 No Known Allergies; me1 - PMHx: 13:48 Bipolar disorder; Schizophrenia; me1 - PSHx: 13:48 section; me1 - Immunization history:: Adult Immunizations not immunized. - Infectious Disease History:: Denies. - Social history:: Smoking status: Reported history of juuling and/or vaping. ROS: 14:01 Constitutional: Negative for fever, chills, and weight loss, Eyes: Negative for injury, nate pain, redness, and discharge, ENT: Negative for injury, pain, and discharge, Neck: Negative for injury, pain, and swelling, Cardiovascular: Negative for chest pain, palpitations, and edema, Respiratory: Negative for shortness of breath, cough, wheezing, and pleuritic chest pain, Back: Negative for injury and pain, : Negative for injury, bleeding, discharge, and swelling, MS/Extremity: Negative for injury and deformity, Skin: Negative for injury, rash, and discoloration, Neuro: Negative for headache, weakness, numbness, tingling, and seizure, Psych: Negative for depression, anxiety, suicide ideation, homicidal ideation, and hallucinations, Allergy/Immunology: Negative for hives, rash, and allergies, Endocrine: Negative for neck swelling, polydipsia, polyuria, polyphagia, and marked weight changes, Hematologic/Lymphatic: Negative for swollen nodes, abnormal bleeding, and unusual bruising, 14:01 Abdomen/GI: Positive for abdominal pain, of the right upper quadrant and right lower quadrant, 14:01 Neuro: Positive for altered mental status, weakness, 16:59 : Negative for urinary symptoms, urinary frequency, small amounts, hematuria, burning nate with urination, difficulty urinating, foul smelling urine, Exam: 14:01 Constitutional: This is a well developed, well nourished patient who is awake, alert, nate and in no acute distress. Head/Face: Normocephalic, atraumatic. Eyes: Pupils equal round and reactive to light, extra-ocular motions intact. Lids and lashes normal. Conjunctiva and sclera are non-icteric and not injected. Cornea within normal limits. Periorbital areas with no swelling, redness, or edema. ENT: Nares patent. No nasal discharge, no septal abnormalities noted. Tympanic membranes are normal and external auditory canals are clear. Oropharynx with no redness, swelling, or masses, exudates, or evidence of obstruction, uvula midline. Mucous membranes moist. Neck: Trachea midline, no thyromegaly or masses palpated, and no cervical lymphadenopathy. Supple, full range of motion without nuchal rigidity, or vertebral point tenderness. No Meningismus. Chest/axilla: Normal chest wall appearance and motion. Nontender with no deformity. No lesions are appreciated. Cardiovascular: Regular rate and rhythm with a normal S1 and S2. No gallops, murmurs, or rubs. Normal PMI, no JVD. No pulse deficits. Respiratory: Lungs have equal breath sounds bilaterally, clear to auscultation and percussion. No rales, rhonchi or wheezes noted. No increased work of breathing, no retractions or nasal flaring. Abdomen/GI: Soft, non-tender, with normal bowel sounds. No distension or tympany. No guarding or rebound. No evidence of tenderness throughout. Back: No spinal tenderness. No costovertebral tenderness. Full range of motion. Skin: Warm, dry with normal turgor. Normal color with no rashes, no lesions, and no evidence of cellulitis. MS/ Extremity: Pulses equal, no cyanosis. Neurovascular intact. Full, normal range of motion. Neuro: Awake and alert, GCS 15, oriented to person, place, time, and situation. Cranial nerves II-XII grossly intact. Motor strength 5/5 in all extremities. Sensory grossly intact. Cerebellar exam normal. Normal gait. Psych: Awake, alert, with orientation to person, place and time. Behavior, mood, and affect are within normal limits. 14:01 Neuro: Orientation: to person, Not oriented to place, time, situation, Mentation: slow to respond, confused, Memory: immediate memory is impaired, remote memory is impaired, recent memory the patient can't recall what they had for dinner last night, Motor: moves all fours, Gait: not tested. seizure activity, is not displayed by the patient, 14:06 ECG was reviewed by the Attending Physician. [facility] Vital Signs: 13:43 BP 112 / 85; Pulse 75; Resp 20; Temp 98.2; Pulse Ox 100% on R/A; Weight 54.43 kg; me1 Height 5 ft. 1 in. ; Pain 10/10; 14:00 BP 119 / 78; Pulse 84; Resp 18; Pulse Ox 100% on R/A; me1 15:00 BP 112 / 73; Pulse 88; Resp 18; Pulse Ox 100% on R/A; me1 16:00 BP 115 / 74; Pulse 86; Resp 18; Pulse Ox 100% on R/A; me1 13:43 Body Mass Index 22.67 (54.43 kg, 154.94 cm) pa1 13:43 Pain Scale: Adult me1 MDM: 13:43 Patient medically screened. [facility] 14:02 Differential Diagnosis: CVA, electrolyte abnormality, alcohol intoxication, [facility] hypoglycemia, intracranial bleed, pneumonia, seizure, TIA, volume depletion. Differential diagnosis: Cholelithiasis, Hepatitis, non-specific abd pain, Peptic Ulcer Disease, Peritonitis. Data reviewed: vital signs, nurses notes, lab test result(s), EKG, radiologic studies, CT scan. Consideration of Admission/Observation Escalation of care including admission/observation considered. I considered the following discharge prescriptions or medication management in the emergency department Medications were administered in the Emergency Department. See MAR. Independent interpretation of the following test(s) in the Emergency Department EKG: See my EKG interpretation above. Test considered but Not performed: MRI: no mri brain. Historians other than the Patient: EMS: ems , police , limited. Care significantly affected by the following chronic conditions: psych, bipolar, schizo. 07/25 14:25 Order name: Comprehensive Metabolic Panel EDMS 07/25 14:25 Order name: Bilirubin Direct EDMS 07/25 14:25 Order name: Acetaminophen Level EDMS 07/25 14:25 Order name: Alcohol Serum/Plasma EDMS 07/25 14:25 Order name: Salicylates Level EDMS 07/25 14:25 Order name: CBC with Automated Diff EDMS 07/25 14:25 Order name: Protime (+INR) EDMS 07/25 14:25 Order name: PTT, Activated Partial Thromb EDMS 07/25 14:33 Order name: CBC with Automated Diff; Complete Time: 15:13 EDCA 07/25 14:40 Order name: Protime (+INR); Complete Time: 15:13 EDMS 07/25 14:40 Order name: PTT, Activated Partial Thromb; Complete Time: 15:13 EDMS 07/25 14:45 Order name: Alcohol Serum/Plasma; Complete Time: 15:13 EDCA 07/25 15:13 Order name: Comprehensive Metabolic Panel; Complete Time: 15:13 EDMS 07/25 15:13 Order name: Bilirubin Direct; Complete Time: 15:13 EDCA 07/25 15:13 Order name: Acetaminophen Level; Complete Time: 15:13 EDCA 07/25 15:18 Order name: Test Serum, [place]; Complete Time: 15:23 EDCA 07/25 15:19 Order name: Test Serum, [place] EDMS 07/25 15:19 Order name: Salicylates Level; Complete Time: 15:23 EDCA 07/25 13:55 Order name: Head C Spine Cap Wo Con EDMS 07/25 16:03 Order name: CT; Complete Time: 16:22 [facility] 07/25 13:44 Order name: EKG; Complete Time: 13:44 [facility] 07/25 13:44 Order name: EKG - Nurse/Tech; Complete Time: 14:08 [facility] 07/25 13:44 Order name: IV Saline Lock; Complete Time: 14:25 [facility] 07/25 13:44 Order name: Labs collected and sent; Complete Time: 14:25 [facility] 07/25 13:44 Order name: Suicide Screening ([place]); Complete Time: 14:25 [facility] 07/25 13:44 Order name: Lucien. Order: juice; Complete Time: 14:25 nate EC:06 Rate is 75 beats/min. Rhythm is regular. QRS [place] is Normal. WI interval is normal. QRS nate interval is normal. QT interval is prolonged at 482 msec. No Q waves. T waves are Normal. No ST changes noted. Clinical impression: NSR w/ Non-specific ST/T Changes and No evidence of ischemia. Interpreted by me. Reviewed by me. Administered Medications: 14:18 Drug: NS 0.9% IV 1000 ml IV at 1 bolus Per protocol; 1000 mL bolus Route: IV; Rate: 1 me1 bolus; Site: left antecubital; 16:42 Follow up: Response: No adverse reaction; IV Status: Completed infusion; IV Intake: me1 1000ml 15:28 Drug: Potassium PO Effervescent Tablet 50 mEq PO once; dissolve in 4 ounces of water or me1 juice Route: PO; 16:42 Follow up: Response: No adverse reaction me1 16:39 Drug: Potassium PO Effervescent Tablet 50 mEq PO once; dissolve in 4 ounces of water or me1 juice repeat in 30 after 1 Route: PO; 16:42 Follow up: Response: No adverse reaction me1 Disposition Summary: 07/26/23 16:23 Discharge Ordered Notes: Location: Home nate Problem: new nate Symptoms: have improved nate Condition: Stable nate Diagnosis - Altered mental status, unspecified nate - Abuse of other non-psychoactive substances nate - Bipolar disorder, unspecified nate - Schizophrenia, unspecified nate - Hypoglycemia, unspecified nate - Adverse effect of amphetamines nate - Hypokalemia nate Followup: nate - With: Private Physician - When: 2 - 3 days - Reason: Recheck today's complaints, Continuance of care, Re-evaluation by your physician Followup: nate - With: Gomez Francis MD - When: 2 - 3 days - Reason: Recheck today's complaints, Continuance of care, Re-evaluation by your physician Discharge Instructions: - Discharge Summary Sheet nate - Confusion nate - Hypoglycemia nate - Substance Use Disorder nate - Schizophrenia nate - Supporting Someone With an Addiction nate - Methamphetamines Use Disorder nate - Hypokalemia nate - Managing Bipolar Disorder nate - Supporting Someone With Schizophrenia nate - Managing Schizophrenia nate Forms: - Medication Reconciliation Form nate - Antibiotic Education nate - Prescription Opioid Use nate - Patient Portal Instructions [facility] - Leadership Thank You Letter [facility] Prescriptions: - Potassium Chloride 20 meq Oral Packet - take 1 packet ORAL route once daily 1 packet in 6 (six) ounces of water or nate juice; Take after meal; 14 packet; Refills: 0, Product Selection Permitted Signatures: Dispatcher [employer] EDEdison Figueroa MD MD cha Eddleman, Michelle, RN RN me1 Corrections: (The following items were deleted from the chart) 13:44 13:44 ACETAMINOPHEN+C.LAB.BRZ ordered. EDMS EDMS 13:44 13:44 BASIC METABOLIC PANEL+C.LAB.BRZ ordered. EDMS EDMS 13:44 13:44 CBC+H.LAB.BRZ ordered. EDMS EDMS 13:44 13:44 ETHANOL+C.LAB.BRZ ordered. EDMS EDMS 13:44 13:44 HEPATIC FUNCTION+C.LAB.BRZ ordered. EDMS EDMS 13:44 13:44 PROTIME (+INR)+COAG.LAB.BRZ ordered. EDMS EDMS 13:44 13:44 Test, Urine+UC.LAB.BRZ ordered. EDMS EDMS 13:44 13:44 PTT, ACTIVATED+COAG.LAB.BRZ ordered. EDMS EDMS 13:44 13:44 SALICYLATE+C.LAB.BRZ ordered. EDMS EDMS 13:44 13:44 Urinalysis+U.LAB.BRZ ordered. EDMS EDMS 13:44 13:44 URINE DRUG SCREEN+UC.LAB.BRZ ordered. EDMS EDMS
[2023-07-26 19:13] VITALS: BP 115/74; TEMP 98.2; O2SAT 100
== END 2023-07-26 17:19 | disposition home or self-care (01) ==
LOC: ER 13:42
DX: F55.8 Abuse of other non-psychoactive substances (principal); E16.2 Hypoglycemia, unspecified; T43.625A Adverse effect of amphetamines, initial encounter; E87.6 Hypokalemia; F25.9 Schizoaffective disorder, unspecified
CPT/HCPCS: 36415; 70450; 71250; 72125; 80053; 80143; 80179; 82077; 82248; 84703; 85025; 85610; 85730; 93005; 96360; 96361; 99285; J7030